=== PATIENT | female | born 1945 | race Caucasian/White ===

== ENCOUNTER 2019-02-05 12:12 | Emergency (ER) | payer MEDICARE, OTHER ==
[~2019-02-05] VITALS: Ht 162.6 cm; Wt 77.3 kg
[2019-02-05 12:28] VITALS: TEMP 98.4
[2019-02-05] MEDS ORDERED: PREMARIN .3MG0.3 MG (14:34)
[2019-02-05] MEDS ORDERED: NORVASC2.5 MG (14:34)
[2019-02-05] MEDS ORDERED: BYSTOLIC2.5 MG (14:34)
[2019-02-05] MEDS ORDERED: MULTIPLE VITAMI1 CAP PO (14:35)
[2019-02-05] MEDS ORDERED: RESTASIS MULTI5.5 ML OP (14:38)
[2019-02-05] MEDS ORDERED: K-DUR 10 MEQ T10 MEQ PO (14:38)
[2019-02-05] MEDS ORDERED: SYNTHROID0.1 MG/TAB PO (14:39)
[2019-02-05] MEDS ORDERED: NORCO 325 MG-51 TAB PO (16:23)
[2019-02-05] MEDS ORDERED: MEDROL 4MG DOSPA4 MG PO (16:23)
[2019-02-05 16:40] VITALS: BP 144/75; PULSE 55
== END 2019-02-05 16:42 | disposition home or self-care (01) ==
LOC: COL.ER 12:12
DX: M54.41 Lumbago with sciatica, right side (principal); I10 Essential (primary) hypertension
CPT/HCPCS: J3010; J7512